=== PATIENT | female | born 1955 | race Caucasian/White ===

== ENCOUNTER 2016-11-29 09:28 | Day surgery (SDC) | payer MEDICAID ==
[2016-11-29] MEDS ORDERED: SIMETHICONE 40 MG/0.6 ML ML ONE (13:03)
[2016-11-29] MEDS ORDERED: MIDAZOLAM HCL 5 MG/5 ML VIAL ONE (13:03)
[2016-11-29] MEDS ORDERED: MEPERIDINE HCL/PF 100 MG/ML AMP ONE (13:03)
[2016-11-29] MEDS: MIDAZOLAM HCL 5 MG/5 ML VIAL ONE ×2 (13:09→13:16)
[2016-11-29 17:24] VITALS: BP_SYST 132
== END 2016-11-29 14:15 | disposition home or self-care (01) ==
LOC: SDS 09:28 → SMU 09:30 → SDS 14:15
PROVIDERS: ATTEND Internal Medicine Gastroenterology
DX: Z12.11 Encounter for screening for malignant neoplasm of colon (principal); D12.2 Benign neoplasm of ascending colon; K64.8 Other hemorrhoids; I10 Essential (primary) hypertension; E78.5 Hyperlipidemia, unspecified; E05.90 Thyrotoxicosis, unspecified without thyrotoxic crisis or storm; Z87.891 Personal history of nicotine dependence
CPT/HCPCS: 45380; 88305; J2175; J2250